=== PATIENT | male | born 1965 | race American Indian/Alaskan Native ===

== ENCOUNTER 2017-12-12 09:37 | Emergency (ER) | payer MEDICARE ==
[2017-12-12 11:29] LABS: Basophils # (Auto) 0.1 K/mm3 (0.0-0.1); Basophils % (Auto) 0.8 % (0.0-1.8); Eosinophils # (Auto) 0.1 K/mm3 (0.0-0.4); Eosinophils % (Auto) 0.6 % (0.0-4.3); Hematocrit 51.2 % (35.5-45.6); Lymphocytes # (Auto) 3.2 K/mm3 (1.2-5.4); Mean Corpuscular HGB Conc 35 % (32-34); Mean Corpuscular Hemoglobin 31 pg (28-32); Mean Corpuscular Volume 89 fl (84-94); Monocytes # (Auto) 0.8 K/mm3 (0.0-0.8); Monocytes % (Auto) 9.2 % (0.0-7.3); Platelet Count 234 K/mm3 (140-440); Red Blood Count 5.75 M/mm3 (3.65-5.03); Red Cell Distribution Width 12.7 % (13.2-15.2)
[2017-12-12 11:47] LABS: Alanine Aminotransferase 50 units/L (7-56); Albumin 4.2 g/dL (3.9-5); BUN/Creatinine Ratio 19; Blood Urea Nitrogen 21 mg/dL (9-20); Calcium 9.6 mg/dL (8.4-10.2); Hemolysis Index 37
[2017-12-12] MEDS ORDERED: TYLENOL PO ONE (16:14)
[2017-12-12] MEDS ORDERED: BENTYL IM ONE (20:49)
[2017-12-12] MEDS ORDERED: NACL 0.9% 1000 ML 1,000 ML IV ONE (20:49)
[2017-12-12] MEDS ORDERED: ZOFRAN IV ONE (20:49)
[2017-12-12] MEDS ORDERED: TORADOL IV ONE (20:49)
--- NOTE | 2017-12-12 21:37 | Emergency Department Report ---
ED N/V/D HPI - General Chief complaint: Abdominal Pain Stated complaint: FEVER Time Seen by Provider: 12/12/17 20:40 Source: patient Mode of arrival: Ambulatory Limitations: No Limitations - History of Present Illness Initial comments: Patient is a 52-year-old male with no significant past medical history who is presenting with 1 week of abdominal pain mostly in the epigastrium. Patient states pain is 8 out of 10 in severity. Patient has had vomiting for the past 7 days as well. Patient is unable to keep anything down. The past 2 days patient has had a low-grade temperature of 99.8. Patient with the vomiting has some right upper back pain as well that is achy discomfort that hurts when he breathes and hurts when he moves. Patient denies diarrhea chest pain shortness of breath and chills. Patient for the fevers unable to keep down Tylenol or Motrin has been going outside in the cold weather to try to alleviate fever MD complaint: vomiting, abdominal pain Description of Vomiting: food contents Quality: cramping, stabbing, aching, sharp Consistency: constant Improves with: none Worsens with: none Associated Symptoms: nausea/vomiting. denies: myalgias, chest pain, cough, headaches, loss of appetite, malaise, rash, dysuria, shortness of breath, syncope - Related Data Previous Rx's Medication Instructions Recorded Last Taken Type Dicyclomine [Bentyl] 20 mg PO QID #15 tablet 12/13/17 Unknown Rx Famotidine [Pepcid] 40 mg PO QHS #7 tablet 12/13/17 Unknown Rx Ondansetron [Zofran Odt] 4 mg PO Q8HR #10 tab.rapdis 12/13/17 Unknown Rx traMADol [Ultram] 50 mg PO Q4HR PRN #15 tablet 12/13/17 Unknown Rx Allergies Allergy/AdvReac Type Severity Reaction Status Date / Time No Known Allergies Allergy Verified 12/12/17 10:44 ED Review of Systems ROS: Stated complaint: FEVER Other details as noted in HPI Comment: All other systems reviewed and negative ED Past Medical Hx - Past Medical History Previous Medical History?: Yes - Surgical History Past Surgical History?: Yes - Social History Smoking Status: Never Smoker Substance Use Type: None - Medications Home Medications: Home Medications Medication Instructions Recorded Confirmed Last Taken Type Dicyclomine [Bentyl] 20 mg PO QID #15 tablet 12/13/17 Unknown Rx Famotidine [Pepcid] 40 mg PO QHS #7 tablet 12/13/17 Unknown Rx Ondansetron [Zofran Odt] 4 mg PO Q8HR #10 tab.rapdis 12/13/17 Unknown Rx traMADol [Ultram] 50 mg PO Q4HR PRN #15 tablet 12/13/17 Unknown Rx ED Physical Exam - General Limitations: No Limitations General appearance: alert, in no apparent distress - Head Head exam: Present: atraumatic, normocephalic - Eye Eye exam: Present: normal appearance - ENT ENT exam: Present: mucous membranes moist - Neck Neck exam: Present: normal inspection - Respiratory Respiratory exam: Present: normal lung sounds bilaterally. Absent: respiratory distress, wheezes, rales, rhonchi - Cardiovascular Cardiovascular Exam: Present: regular rate, normal rhythm. Absent: systolic murmur, diastolic murmur, rubs, gallop - GI/Abdominal GI/Abdominal exam: Present: soft, tenderness (epigastric tenderness), normal bowel sounds. Absent: distended, guarding, rebound - Rectal Rectal exam: Present: deferred - Extremities Exam Extremities exam: Present: normal inspection - Back Exam Back exam: Present: normal inspection, tenderness (mild tenderness just medial to the right scapula) - Neurological Exam Neurological exam: Present: alert, oriented X3 - Psychiatric Psychiatric exam: Present: normal affect, normal mood - Skin Skin exam: Present: warm, dry, intact, normal color. Absent: rash ED Course Vital Signs 12/12/17 12/12/17 10:44 22:06 Temperature 98.3 F Pulse Rate 100 H Respiratory 20 18 Rate Blood Pressure 133/74 O2 Sat by Pulse 97 Oximetry - Reevaluation(s) Reevaluation #1: 12/12/17 21:43 Patient seen in [place] area secondary to the long wait times. Patient does have significant epigastric tenderness and has not been able to keep anything down for the last week. IV fluids been ordered as well as minutes for symptomatic relief. CT abdomen and pelvis with contrast is also been ordered to rule out any acute abnormalities such as ulcer rupture or bowel inflammation ED Medical Decision Making - Lab Data Result diagrams: 12/12/17 11:00 12/12/17 11:00 - Radiology Data Radiology results: report reviewed CT abdomen and pelvis shows no acute process - Medical Decision Making Patient is a 52-year-old [place] male with 7 days of nausea vomiting and epigastric tenderness. Patient is diagnosed with a gastritis be discharged home symptomatically. Patient was hydrated was feeling better at this time Critical care attestation.: If time is entered above; I have spent that time in minutes in the direct care of this critically ill patient, excluding procedure time. ED Disposition Clinical Impression: Viral gastritis Disposition: DC-01 TO HOME OR SELFCARE Is pt being admited?: No Does the pt Need Aspirin: No Condition: Stable Instructions: Gastritis (ED) Prescriptions: Famotidine [Pepcid] 40 mg PO QHS #7 tablet Dicyclomine [Bentyl] 20 mg PO QID #15 tablet Ondansetron [Zofran Odt] 4 mg PO Q8HR #10 tab.rapdis traMADol [Ultram] 50 mg PO Q4HR PRN #15 tablet PRN Reason: Pain Referrals: [facility] [Other] - 3-5 Days
--- NOTE | 2017-12-13 01:23 | Cat Scan Report ---
FINAL REPORT PROCEDURE: CT ABDOMEN PELVIS W CON TECHNIQUE: Computerized axial tomography of the abdomen and pelvis was performed after the IV injection of iodinated nonionic contrast. HISTORY: NVD abd pain COMPARISON: No prior studies are available for comparison. FINDINGS: Visualized lower thorax: No significant abnormality. Liver: Normal size and attenuation. Spleen: Normal size and attenuation. Gallbladder and biliary system: Normal. Pancreas: Normal. Adrenals: Normal. Kidneys: Both kidneys have a normal size. No hydronephrosis. There is a 4 centimeter cyst off the anterior right renal cortex. No stones are identified.. GI tract: The stomach is normal. A small hiatal hernia is identified. The small bowel has a normal caliber without obstruction. No ileus or enteritis. The cecum, appendix and colon are normal.. Lymph nodes and mesentery: Normal. Vasculature: Normal. Bladder: Normal. Reproductive organs: Normal. Peritoneum: No free fluid. Musculoskeletal structures: There is a left hip arthroplasty with hardware appropriately positioned. Minimal artifact in the lower pelvis is noted.. Other: None. IMPRESSION: There is no evidence of intestinal or urinary tract obstruction. No ileus or enteritis. The appendix is normal.
[2017-12-13 02:39] VITALS: BP 133/76
== END 2017-12-13 02:20 | disposition home or self-care (01) ==
LOC: ED 09:37
DX: A08.4 Viral intestinal infection, unspecified (principal)
CPT/HCPCS: 36415; 74177; 80053; 85025; 93005; 93010; 96361; 96372; 96374; 96375; 99284; J0500; J1885; J2405; J7030; Q9967